=== PATIENT | female | born 1995 | race Caucasian/White ===

== ENCOUNTER 2025-01-04 11:00 | Outpatient (RCR) | payer BC, SELFPAY | END 2025-01-04 23:59 | disposition home or self-care (01) | LOC: PT 11:00 | PROVIDERS: Visit Provider Nurse Practitioner Family | DX: M50.10 Cervical disc disorder with radiculopathy, unspecified cervical region (principal) | CPT/HCPCS: 20560; 97014; 97110; 97112; 97140; 97163; 97164; G0283 ==

== ENCOUNTER 2025-01-13 12:44 | Outpatient (RCR) | payer BC, SELFPAY | END 2025-01-21 23:59 | disposition home or self-care (01) | LOC: PT 12:44 | PROVIDERS: Visit Provider Nurse Practitioner Family | DX: M50.10 Cervical disc disorder with radiculopathy, unspecified cervical region (principal) | CPT/HCPCS: 97110; 97112 ==